=== PATIENT | female | born 1950 | race Caucasian/White ===

== ENCOUNTER 2020-06-25 12:51 | Inpatient (IN) ==
[2020-06-25] MEDS ORDERED: NS 0.9% 1000 ml BAG 1,000 ML IV ONE ×2 (12:57→15:21)
[2020-06-25 14:38] LABS: Hematocrit 34 % (35-47); Hemoglobin 11.2 g/dL (12.0-16.0); Mean Corpuscular HGB Conc 33 g/dL (31-36); Mean Corpuscular Hemoglobin 28 pg (27-31); Mean Corpuscular Volume 86 fL (80-97); Mean Platelet Volume 8.3 fL (7.4-10.4); Platelet Count 172 10^3/uL (150-450); Red Blood Count 3.99 10^6 /uL (3.70-4.87); Red Cell Distribution Width 18 % (10-15); White Blood Count 6.5 10^3/uL (3.5-10.8)
[2020-06-25 14:59] LABS: Troponin I 0.01 ng/mL (<0.03)
[2020-06-25 15:12] LABS: TSH Ultra Thyroid Stim Horm 8.48 mcIU/mL (0.34-5.60)
[2020-06-25 15:13] LABS: Albumin 3.6 g/dL (3.2-5.2); Albumin/Globulin Ratio 1.1 (1-3); BUN/Creatinine Ratio 16.3 (8-20); Calcium 9.4 mg/dL (8.6-10.3); EGFR African American 86.1 (>60); EGFR Non-African American 71.1 (>60); Globulin 3.3 g/dL (2-4); Magnesium 1.4 mg/dL (1.9-2.7); Potassium 3.4 mmol/L (3.5-5.0); Total Bilirubin 2.1 mg/dL (0.2-1.0); Total Protein 6.9 g/dL (6.4-8.9)
[2020-06-25] MEDS ORDERED: Magnesium Sulfate 2 gm BAG 2 GM/50 ML BAG IVPB ONE (15:21)
[2020-06-25 15:56] LABS: ABS Basophils 0.1 10^3/ul (0-0.2); ABS Eosinophils 0.1 10^3/ul (0-0.6); ABS Lymphocytes 1.4 10^3/ul (1.0-4.8); ABS Monocytes 0.4 10^3/ul (0-0.8); ABS Neutrophils 4.6 10^3/ul (1.5-7.7); ABS Nucleated RBC 0.4 10^3/ul; Eosinophil % 0.9 %; Lymphocyte % 21.8 %; Nucleated Red Blood Cells % 5.4
[2020-06-25 15:57] LABS: Activated Partial Thrombo Time 21.5 seconds (26.0-38.0); INR 1.57 (0.82-1.09)
[2020-06-25] MEDS ORDERED: Al Hydrox/Mg Hydrox/Simet LIQ 30 ML UDC PO PRN (17:14)
[2020-06-25] MEDS ORDERED: HYDROcodone/ACETAMIN 5/325 mg TAB PO PRN (17:18)
[2020-06-25] MEDS ORDERED: Polyethylene Glycol 3350 17 GM PACKET PO PRN (17:18)
[2020-06-25] MEDS ORDERED: Iohexol 350 (CONTRAST) 500 ML MDV IV ONE (17:37)
[2020-06-25 17:39] LABS: C Reactive Protein 43.03 mg/L (<8.01)
[2020-06-25] MEDS ORDERED: Potassium Chloride LIQUID 20 MEQ/15 ML LIQUID PO ONE (17:45)
[2020-06-25 17:57] LABS: Free T4 1.27 ng/dL (0.61-1.12)
[2020-06-25 18:12] LABS: Urine Appearance Clear; Urine Bilirubin Negative (Negative); Urine Blood 1+ (Negative); Urine Color Yellow; Urine Glucose Negative (Negative); Urine Ketones Trace (Negative); Urine Nitrite Negative (Negative); Urine Protein Negative (Negative); Urine Specific Gravity 1.012 (1.010-1.030); Urine Urobilinogen Negative (Negative)
[2020-06-25 18:21] LABS: Urine Bacteria 1+ (Absent); Urine Red Blood Cell 1+(3-5/hpf) (Absent); Urine Squamous Epithelial Cell Present (Absent); Urine White Blood Cell 2+(11-20/hpf) (Absent)
[2020-06-25 18:30] LABS: Ferritin 687.7 ng/mL (11-307)
[2020-06-26] MEDS ORDERED: DILTIAZEM HCL 360 MG PO SCH (09:00)
[2020-06-26] MEDS ORDERED: Anastrozole 1 mg TAB (NF) PO SCH (09:00)
[2020-06-26] MEDS: CMCS: Anastrozole 1 mg TAB (NF) PO SCH (11:26)
[2020-06-27] MEDS: CMCS: Anastrozole 1 mg TAB (NF) PO SCH ×2 (09:00→12:24)
[2020-06-27 14:12] LABS: Hematocrit 28 % (35-47); Hemoglobin 9.1 g/dL (12.0-16.0); Mean Corpuscular HGB Conc 32 g/dL (31-36); Mean Corpuscular Hemoglobin 28 pg (27-31); Mean Corpuscular Volume 86 fL (80-97); Mean Platelet Volume 7.7 fL (7.4-10.4); Platelet Count 148 10^3/uL (150-450); Red Blood Count 3.25 10^6 /uL (3.70-4.87); Red Cell Distribution Width 17 % (10-15); White Blood Count 4.4 10^3/uL (3.5-10.8)
[2020-06-27 14:17] LABS: INR 1.17 (0.82-1.09)
[2020-06-27 14:26] LABS: BUN/Creatinine Ratio 16.9 (8-20); EGFR African American 122.3 (>60); EGFR Non-African American 101.1 (>60); Potassium 3.4 mmol/L (3.5-5.0)
[2020-06-27 15:16] LABS: ABS Basophils 0.1 10^3/ul (0-0.2); ABS Eosinophils 0.1 10^3/ul (0-0.6); ABS Monocytes 0.3 10^3/ul (0-0.8); ABS Nucleated RBC 0.1 10^3/ul; Eosinophil % 1.9 %; Lymphocyte % 22.9 %; Nucleated Red Blood Cells % 1.9
[2020-06-28] MEDS: CMCS: Anastrozole 1 mg TAB (NF) PO SCH (08:23)
[2020-06-29 05:36] LABS: Hematocrit 28 % (35-47); Hemoglobin 9.2 g/dL (12.0-16.0); Mean Corpuscular HGB Conc 33 g/dL (31-36); Mean Corpuscular Hemoglobin 29 pg (27-31); Mean Corpuscular Volume 88 fL (80-97); Mean Platelet Volume 7.9 fL (7.4-10.4); Platelet Count 152 10^3/uL (150-450); Red Blood Count 3.21 10^6 /uL (3.70-4.87); Red Cell Distribution Width 18 % (10-15); White Blood Count 4.4 10^3/uL (3.5-10.8)
[2020-06-29 05:45] LABS: Calcium 8.9 mg/dL (8.6-10.3); Potassium 3.7 mmol/L (3.5-5.0)
[2020-06-29 05:51] LABS: BUN/Creatinine Ratio 17.9 (8-20); EGFR African American 105.6 (>60); EGFR Non-African American 87.3 (>60)
[2020-06-29 06:13] LABS: ABS Basophils 0.1 10^3/ul (0-0.2); ABS Eosinophils 0.1 10^3/ul (0-0.6); ABS Lymphocytes 1.3 10^3/ul (1.0-4.8); ABS Monocytes 0.3 10^3/ul (0-0.8); ABS Neutrophils 2.6 10^3/ul (1.5-7.7); ABS Nucleated RBC 0.1 10^3/ul; Eosinophil % 2.2 %; Lymphocyte % 29.2 %; Nucleated Red Blood Cells % 1.7
[2020-06-29] MEDS: CMCS: Anastrozole 1 mg TAB (NF) PO SCH (08:23)
[2020-06-29 12:27] LABS: Urine Appearance Turbid; Urine Bilirubin Negative (Negative); Urine Blood 2+ (Negative); Urine Color Amber; Urine Glucose Negative (Negative); Urine Ketones Negative (Negative); Urine Nitrite Negative (Negative); Urine Protein 2+(100 mg/dL) (Negative); Urine Specific Gravity 1.023 (1.010-1.030); Urine Urobilinogen Positive (Negative)
[2020-06-29 12:50] LABS: Urine Bacteria 2+ (Absent); Urine Red Blood Cell 3+(>10/hpf) (Absent); Urine Squamous Epithelial Cell Present (Absent); Urine Transitional Epithelial Present (Absent); Urine White Blood Cell 3+(>20/hpf) (Absent)
[2020-06-29 13:09] LABS: C Reactive Protein 26.75 mg/L (<8.01)
[2020-06-30] MEDS: CMCS: Anastrozole 1 mg TAB (NF) PO SCH (09:16)
[2020-06-30] MEDS ORDERED: Piperacillin/Tazobac ADVAN 3.375 GM in NS 0.9% 100 ml BAG 100 ML IV ONE (10:36)
[2020-06-30] MEDS ORDERED: Zosyn per Pharmacy NOTE FOLLOW UP SCH (11:00)
[2020-07-01] MEDS: ZOSYN 3.375 GM Q8H per EXTENDED INFUSION IV SCH ×2 (00:04→09:39)
[2020-07-01] MEDS: CMCS: Anastrozole 1 mg TAB (NF) PO SCH (09:39)
[2020-07-01] MEDS: methylPREDNISolone SOD SUCC 1000 MG in NS 0.9% 100 ML IVPB SCH (16:55)
[2020-07-01] MEDS ORDERED: methylPREDNISolone SOD SUCC 1000 MG ML VIAL IVPB SCH (17:00)
[2020-07-01 17:37] LABS: Thyroid Peroxidase Antibodies 98.56 IU/mL (<9)
[2020-07-01 17:50] LABS: Thyroglobulin Antibody II 3.2 IU/mL (<4.0)
[2020-07-02] MEDS: Ondansetron 4 mg VIAL 2 MG/ML 2 ml VIAL IV PRN (01:35)
[2020-07-02] MEDS ORDERED: Buffered Lidocaine 1% SYRIN 1 ml INTRADERM ONE ×2 (01:46→12:58)
[2020-07-02] MEDS: ZOSYN 3.375 GM Q8H per EXTENDED INFUSION IV SCH ×3 (02:53→16:42)
[2020-07-02 05:49] LABS: C Reactive Protein 17.98 mg/L (<8.01); Magnesium 1.6 mg/dL (1.9-2.7)
[2020-07-02 06:36] LABS: TSH Ultra Thyroid Stim Horm 4.46 mcIU/mL (0.34-5.60)
[2020-07-02] MEDS: CMCS: Anastrozole 1 mg TAB (NF) PO SCH (08:48)
[2020-07-02] MEDS: methylPREDNISolone SOD SUCC 1000 MG in NS 0.9% 100 ML IVPB SCH (15:02)
[2020-07-03] MEDS: ZOSYN 3.375 GM Q8H per EXTENDED INFUSION IV SCH ×3 (00:21→15:42)
[2020-07-03 05:18] LABS: ABS Lymphocytes 0.9 10^3/ul (1.0-4.8); ABS Monocytes 0.3 10^3/ul (0-0.8); ABS Nucleated RBC 0.1 10^3/ul; Hematocrit 26 % (35-47); Hemoglobin 8.4 g/dL (12.0-16.0); Lymphocyte % 14.7 %; Mean Corpuscular HGB Conc 33 g/dL (31-36); Mean Corpuscular Hemoglobin 28 pg (27-31); Mean Corpuscular Volume 87 fL (80-97); Mean Platelet Volume 7.8 fL (7.4-10.4); Nucleated Red Blood Cells % 2.2; Platelet Count 219 10^3/uL (150-450); Red Blood Count 2.96 10^6 /uL (3.70-4.87); Red Cell Distribution Width 19 % (10-15); White Blood Count 6.2 10^3/uL (3.5-10.8)
[2020-07-03 05:39] LABS: Albumin 3.1 g/dL (3.2-5.2); Albumin/Globulin Ratio 1.2 (1-3); BUN/Creatinine Ratio 20.3 (8-20); Calcium 7.8 mg/dL (8.6-10.3); EGFR African American 87.3 (>60); EGFR Non-African American 72.2 (>60); Globulin 2.6 g/dL (2-4); Potassium 3.6 mmol/L (3.5-5.0); Total Bilirubin 1.2 mg/dL (0.2-1.0); Total Protein 5.7 g/dL (6.4-8.9)
[2020-07-03] MEDS ORDERED: Magnesium Sulfate IV 3 GM in NS 0.9% 100 ml BAG 100 ML IVPB ONE (08:04)
[2020-07-03] MEDS: CMCS: Anastrozole 1 mg TAB (NF) PO SCH (08:29)
[2020-07-03] MEDS: methylPREDNISolone SOD SUCC 1000 MG in NS 0.9% 100 ML IVPB SCH (09:26)
[2020-07-04] MEDS: ZOSYN 3.375 GM Q8H per EXTENDED INFUSION IV SCH ×4 (00:03→23:50)
[2020-07-04] MEDS: CMCS: Anastrozole 1 mg TAB (NF) PO SCH (08:13)
[2020-07-04] MEDS ORDERED: methylPREDNISolone SOD SUCC 500 MG in NS 0.9% 100 ml BAG 100 ML IVPB SCH (09:00)
[2020-07-04 13:00] LABS: HIV 4th Generation Nonreactive (Nonreactive)
[2020-07-05 04:36] LABS: Hematocrit 27 % (35-47); Hemoglobin 8.9 g/dL (12.0-16.0); Mean Corpuscular HGB Conc 33 g/dL (31-36); Mean Corpuscular Hemoglobin 29 pg (27-31); Mean Corpuscular Volume 86 fL (80-97); Mean Platelet Volume 7.6 fL (7.4-10.4); Platelet Count 222 10^3/uL (150-450); Red Blood Count 3.11 10^6 /uL (3.70-4.87); Red Cell Distribution Width 20 % (10-15); White Blood Count 5.1 10^3/uL (3.5-10.8)
[2020-07-05 04:53] LABS: BUN/Creatinine Ratio 17.6 (8-20); Calcium 7.7 mg/dL (8.6-10.3); EGFR African American 94.2 (>60); EGFR Non-African American 77.8 (>60)
[2020-07-05 04:56] LABS: Potassium 2.7 mmol/L (3.5-5.0)
[2020-07-05] MEDS ORDERED: Potassium Chlor 20 meq TAB.ER PO ONE (04:58)
[2020-07-05] MEDS: KCL 20 MEQ/100 ML IVPREMIX 20 MEQ/100 ML BAG IV SCH ×2 (05:10→09:43)
[2020-07-05 08:16] LABS: ABS Lymphocytes 0.6 10^3/ul (1.0-4.8); ABS Monocytes 0.3 10^3/ul (0-0.8); ABS Neutrophils 4.1 10^3/ul (1.5-7.7); ABS Nucleated RBC 0.2 10^3/ul; Eosinophil % 0.1 %; Lymphocyte % 12.8 %; Nucleated Red Blood Cells % 4.2
[2020-07-05 08:18] LABS: Polychromasia 1+
[2020-07-05] MEDS: CMCS: Anastrozole 1 mg TAB (NF) PO SCH (09:49)
[2020-07-05] MEDS: ZOSYN 3.375 GM Q8H per EXTENDED INFUSION IV SCH ×3 (12:11→20:35)
[2020-07-05] MEDS ORDERED: Gadoteridol (CONTRAST) 279.3 MG/ML 10 ML IV ONE (20:08)
[2020-07-06] MEDS: ZOSYN 3.375 GM Q8H per EXTENDED INFUSION IV SCH ×3 (03:21→21:16)
[2020-07-06 07:45] LABS: BUN/Creatinine Ratio 24.1 (8-20); Calcium 7.9 mg/dL (8.6-10.3); EGFR African American 124.7 (>60); EGFR Non-African American 103.1 (>60); Magnesium 1.7 mg/dL (1.9-2.7)
[2020-07-06] MEDS ORDERED: Potassium Chlor 20 meq TAB.ER PO ONE (08:24)
[2020-07-06] MEDS: CMCS: Anastrozole 1 mg TAB (NF) PO SCH (08:58)
[2020-07-07] MEDS: ZOSYN 3.375 GM Q8H per EXTENDED INFUSION IV SCH ×2 (04:39→11:50)
[2020-07-07 05:07] LABS: BUN/Creatinine Ratio 25.5 (8-20); Calcium 8.3 mg/dL (8.6-10.3); EGFR African American 132.6 (>60); EGFR Non-African American 109.6 (>60); Magnesium 1.7 mg/dL (1.9-2.7); Potassium 3.5 mmol/L (3.5-5.0)
[2020-07-07] MEDS: CMCS: Anastrozole 1 mg TAB (NF) PO SCH (09:26)
[2020-07-08] MEDS: CMCS: Anastrozole 1 mg TAB (NF) PO SCH (09:34)
[2020-07-08 17:06] LABS: Hematocrit 31 % (35-47); Mean Corpuscular HGB Conc 32 g/dL (31-36); Mean Corpuscular Hemoglobin 28 pg (27-31); Mean Corpuscular Volume 86 fL (80-97); Mean Platelet Volume 7.4 fL (7.4-10.4); Platelet Count 264 10^3/uL (150-450); Red Blood Count 3.63 10^6 /uL (3.70-4.87); Red Cell Distribution Width 19 % (10-15); White Blood Count 10.2 10^3/uL (3.5-10.8)
[2020-07-08 17:25] LABS: BUN/Creatinine Ratio 30.8 (8-20); Calcium 8.6 mg/dL (8.6-10.3); EGFR African American 141.5 (>60); EGFR Non-African American 116.9 (>60); Potassium 3.3 mmol/L (3.5-5.0)
[2020-07-08 17:28] LABS: ABS Lymphocytes 0.9 10^3/ul (1.0-4.8); ABS Monocytes 0.2 10^3/ul (0-0.8); ABS Neutrophils 9.1 10^3/ul (1.5-7.7); ABS Nucleated RBC 0.2 10^3/ul; Eosinophil % 0.1 %; Lymphocyte % 8.6 %; Microcytosis 1+; Nucleated Red Blood Cells % 1.5; Polychromasia 1+
[2020-07-08 18:22] LABS: Urine Appearance Cloudy; Urine Bilirubin Negative (Negative); Urine Blood Negative (Negative); Urine Color Yellow; Urine Glucose Negative (Negative); Urine Ketones Negative (Negative); Urine Nitrite Negative (Negative); Urine Protein 1+(30 mg/dL) (Negative); Urine Specific Gravity 1.013 (1.010-1.030); Urine Urobilinogen Negative (Negative)
[2020-07-08 18:44] LABS: Urine Bacteria Absent (Absent); Urine Red Blood Cell Absent (Absent); Urine White Blood Cell Trace(0-5/hpf) (Absent)
[2020-07-09] MEDS: CMCS: Anastrozole 1 mg TAB (NF) PO SCH (08:21)
[2020-07-09 11:29] LABS: Body Fluid Source Cerebral Spinal
[2020-07-09 11:47] LABS: CSF Glucose 79 mg/dL (40-70)
[2020-07-09 12:24] LABS: Activated Partial Thrombo Time 20.6 seconds (26.0-38.0); INR 1.16 (0.82-1.09)
[2020-07-09 13:20] LABS: Body Fluid Mono 20 %
[2020-07-10 05:23] LABS: Hematocrit 31 % (35-47); Hemoglobin 9.9 g/dL (12.0-16.0); Mean Corpuscular HGB Conc 33 g/dL (31-36); Mean Corpuscular Hemoglobin 28 pg (27-31); Mean Corpuscular Volume 87 fL (80-97); Mean Platelet Volume 7.3 fL (7.4-10.4); Platelet Count 246 10^3/uL (150-450); Red Blood Count 3.53 10^6 /uL (3.70-4.87); Red Cell Distribution Width 20 % (10-15); White Blood Count 7.7 10^3/uL (3.5-10.8)
[2020-07-10 05:37] LABS: Albumin 3.2 g/dL (3.2-5.2); Albumin/Globulin Ratio 1.4 (1-3); BUN/Creatinine Ratio 36.4 (8-20); Calcium 8.5 mg/dL (8.6-10.3); EGFR African American 132.6 (>60); EGFR Non-African American 109.6 (>60); Globulin 2.3 g/dL (2-4); Magnesium 1.6 mg/dL (1.9-2.7); Potassium 3.3 mmol/L (3.5-5.0); Total Bilirubin 0.9 mg/dL (0.2-1.0); Total Protein 5.5 g/dL (6.4-8.9)
[2020-07-10 06:30] LABS: Polychromasia 1+
[2020-07-10 06:34] LABS: ABS Basophils 0.1 10^3/ul (0-0.2); ABS Lymphocytes 1.2 10^3/ul (1.0-4.8); ABS Monocytes 0.6 10^3/ul (0-0.8); ABS Neutrophils 5.8 10^3/ul (1.5-7.7); ABS Nucleated RBC 0.2 10^3/ul; Eosinophil % 0.3 %; Lymphocyte % 15.3 %; Nucleated Red Blood Cells % 1.9
[2020-07-10] MEDS: CMCS: Anastrozole 1 mg TAB (NF) PO SCH (09:02)
[2020-07-10] MEDS ORDERED: Potassium Chlor 20 meq TAB.ER PO ONE ×2 (10:06→12:00)
[2020-07-10] MEDS ORDERED: Magnesium Sulf 4 GM/100 ML IV 4,000 MG/100 ML BAG IVPB ONE (10:09)
[2020-07-11 05:09] LABS: BUN/Creatinine Ratio 37.3 (8-20); Calcium 8.9 mg/dL (8.6-10.3); EGFR African American 122.3 (>60); EGFR Non-African American 101.1 (>60); Magnesium 2.2 mg/dL (1.9-2.7); Potassium 4.1 mmol/L (3.5-5.0)
[2020-07-11] MEDS: CMCS: Anastrozole 1 mg TAB (NF) PO SCH (09:22)
[2020-07-12] MEDS: CMCS: Anastrozole 1 mg TAB (NF) PO SCH (08:56)
[2020-07-12] MEDS ORDERED: Furosemide 20 mg/2 ml IV VIAL IV SLOW PU ONE (13:11)
[2020-07-12] MEDS ORDERED: Gadoteridol (CONTRAST) 279.3 MG/ML 10 ML IV ONE (16:42)
[2020-07-12] MEDS: Nitrofurantoin (monohydrate/macrocrystals) 100 mg CAP PO SCH (21:30)
[2020-07-13 06:19] LABS: ABS Nucleated RBC 0.3 10^3/ul; Hematocrit 30 % (35-47); Hemoglobin 9.7 g/dL (12.0-16.0); Mean Corpuscular HGB Conc 32 g/dL (31-36); Mean Corpuscular Hemoglobin 28 pg (27-31); Mean Corpuscular Volume 88 fL (80-97); Mean Platelet Volume 7.8 fL (7.4-10.4); Nucleated Red Blood Cells % 3.2; Platelet Count 178 10^3/uL (150-450); Red Blood Count 3.43 10^6 /uL (3.70-4.87); Red Cell Distribution Width 20 % (10-15); White Blood Count 7.9 10^3/uL (3.5-10.8)
[2020-07-13 06:31] LABS: ABS Eosinophils 0.1 10^3/ul (0-0.6); ABS Lymphocytes 1.2 10^3/ul (1.0-4.8); ABS Monocytes 0.3 10^3/ul (0-0.8); Eosinophil % 0.8 %; Lymphocyte % 15.7 %
[2020-07-13 06:38] LABS: BUN/Creatinine Ratio 30.5 (8-20); Calcium 8.6 mg/dL (8.6-10.3); EGFR African American 122.3 (>60); EGFR Non-African American 101.1 (>60); Magnesium 1.8 mg/dL (1.9-2.7); Potassium 3.8 mmol/L (3.5-5.0)
[2020-07-13] MEDS ORDERED: NS 0.9% 500 ml BAG 500 ML IV ONE (08:41)
[2020-07-13] MEDS ORDERED: NS 0.9% 1000 ml BAG 1,000 ML IV ONE (08:46)
[2020-07-13] MEDS ORDERED: Buffered Lidocaine 1% SYRIN 1 ml INTRADERM ONE (09:40)
[2020-07-13] MEDS: Nitrofurantoin (monohydrate/macrocrystals) 100 mg CAP PO SCH ×2 (13:46→20:48)
[2020-07-13] MEDS: CMCS: Anastrozole 1 mg TAB (NF) PO SCH (13:47)
[2020-07-13] MEDS ORDERED: Magnesium Sulfate 2 gm BAG 2 GM/50 ML BAG IVPB ONE (15:17)
[2020-07-14 07:16] LABS: Calcium 8.7 mg/dL (8.6-10.3); EGFR African American 129.9 (>60); EGFR Non-African American 107.3 (>60); Magnesium 2.1 mg/dL (1.9-2.7); Potassium 4.1 mmol/L (3.5-5.0)
[2020-07-14] MEDS: Nitrofurantoin (monohydrate/macrocrystals) 100 mg CAP PO SCH ×2 (08:26→20:31)
[2020-07-14] MEDS: CMCS: Anastrozole 1 mg TAB (NF) PO SCH (08:27)
[2020-07-14 10:13] LABS: Anti-Glial/Neuronal Nuc Ab-1 A Negative titer (<1:240); Anti-Neuronal Nuclear Ab Type1 Negative titer (<1:240); Anti-Neuronal Nuclear Ab Type2 Negative titer (<1:240); Anti-Neuronal Nuclear Ab Type3 Negative titer (<1:240); CRMP-5 IgG Antibody Negative titer (<1:240); Purkinje Cell Cytoplasm Typ Tr Negative titer (<1:240); Purkinje Cell Cytoplasm Type 1 Negative titer (<1:240); Purkinje Cell Cytoplasm Type 2 Negative titer (<1:240)
[2020-07-14] MEDS: Enoxaparin 40 MG/0.4 ML SYR SUBCUT SCH (18:37)
[2020-07-15 06:00] LABS: BUN/Creatinine Ratio 20.8 (8-20); Blood Urea Nitrogen 20 mg/dL (6-24); CO2 Carbon Dioxide 25 mmol/L (22-32); Calcium 9.1 mg/dL (8.6-10.3); Chloride 106 mmol/L (101-111); EGFR African American 69.7 (>60); EGFR Non-African American 57.6 (>60); Glucose 98 mg/dL (70-100); Magnesium 2.1 mg/dL (1.9-2.7); Sodium 137 mmol/L (135-145)
[2020-07-15 06:19] LABS: Anion Gap 6 mmol/L (2-11)
[2020-07-15] MEDS: Nitrofurantoin (monohydrate/macrocrystals) 100 mg CAP PO SCH ×2 (09:56→20:54)
[2020-07-15] MEDS: CMCS: Anastrozole 1 mg TAB (NF) PO SCH (09:57)
[2020-07-15] MEDS: Ondansetron 4 mg VIAL 2 MG/ML 2 ml VIAL IV PRN (10:01)
[2020-07-15] MEDS: Enoxaparin 40 MG/0.4 ML SYR SUBCUT SCH (18:08)
[2020-07-16 06:16] LABS: ABS Lymphocytes 0.6 10^3/ul (1.0-4.8); ABS Monocytes 0.4 10^3/ul (0-0.8); ABS Neutrophils 7.3 10^3/ul (1.5-7.7); Hematocrit 27 % (35-47); Hemoglobin 8.7 g/dL (12.0-16.0); Lymphocyte % 7.7 %; Mean Corpuscular HGB Conc 32 g/dL (31-36); Mean Corpuscular Hemoglobin 29 pg (27-31); Mean Corpuscular Volume 88 fL (80-97); Mean Platelet Volume 7.4 fL (7.4-10.4); Nucleated Red Blood Cells % 0.3; Platelet Count 136 10^3/uL (150-450); Red Blood Count 3.04 10^6 /uL (3.70-4.87); Red Cell Distribution Width 21 % (10-15); White Blood Count 8.3 10^3/uL (3.5-10.8)
[2020-07-16 06:34] LABS: Calcium 8.3 mg/dL (8.6-10.3); Potassium 4.3 mmol/L (3.5-5.0)
[2020-07-16 06:40] LABS: EGFR African American 141.5 (>60); EGFR Non-African American 116.9 (>60)
[2020-07-16] MEDS: Nitrofurantoin (monohydrate/macrocrystals) 100 mg CAP PO SCH ×2 (08:20→20:01)
[2020-07-16] MEDS: CMCS: Anastrozole 1 mg TAB (NF) PO SCH (08:21)
[2020-07-16] MEDS: diPHENhydraMINE IV 50 MG/ML 1 ml VIAL (BENADRYL) IV SCH (10:49)
[2020-07-16] MEDS: IMMUNE GLOBULN IV SCH (11:34)
[2020-07-16] MEDS: Enoxaparin 40 MG/0.4 ML SYR SUBCUT SCH (17:25)
[2020-07-17] MEDS: Nitrofurantoin (monohydrate/macrocrystals) 100 mg CAP PO SCH (09:51)
[2020-07-17] MEDS: CMCS: Anastrozole 1 mg TAB (NF) PO SCH (09:56)
[2020-07-17] MEDS: diPHENhydraMINE IV 50 MG/ML 1 ml VIAL (BENADRYL) IV SCH (10:51)
[2020-07-17] MEDS: IMMUNE GLOBULN IV SCH (11:51)
[2020-07-18] MEDS: CMCS: Anastrozole 1 mg TAB (NF) PO SCH (08:03)
[2020-07-18] MEDS: diPHENhydraMINE IV 50 MG/ML 1 ml VIAL (BENADRYL) IV SCH (10:31)
[2020-07-18] MEDS: IMMUNE GLOBULN IV SCH (10:55)
[2020-07-19] MEDS: CMCS: Anastrozole 1 mg TAB (NF) PO SCH (07:55)
[2020-07-19] MEDS: diPHENhydraMINE IV 50 MG/ML 1 ml VIAL (BENADRYL) IV SCH (10:19)
[2020-07-19] MEDS: Immune Globuln (PRIVIGEN) 30 GM in PREMIX IV SCH (11:07)
[2020-07-19 14:57] LABS: CRMP-5-IgG, CSF Negative
[2020-07-19 14:58] LABS: PCA-Tr, CSF Negative
[2020-07-19 14:59] LABS: PCA-1, CSF Negative; PCA-2, CSF Negative
[2020-07-20] MEDS: diPHENhydraMINE IV 50 MG/ML 1 ml VIAL (BENADRYL) IV SCH (10:41)
[2020-07-20] MEDS: CMCS: Anastrozole 1 mg TAB (NF) PO SCH (11:03)
[2020-07-20] MEDS: Immune Globuln (PRIVIGEN) 30 GM in PREMIX IV SCH (11:25)
[2020-07-20 17:22] LABS: Hematocrit 30 % (35-47); Hemoglobin 9.5 g/dL (12.0-16.0); Mean Corpuscular HGB Conc 32 g/dL (31-36); Mean Corpuscular Hemoglobin 29 pg (27-31); Mean Corpuscular Volume 89 fL (80-97); Mean Platelet Volume 7.6 fL (7.4-10.4); Platelet Count 188 10^3/uL (150-450); Red Blood Count 3.31 10^6 /uL (3.70-4.87); Red Cell Distribution Width 22 % (10-15)
[2020-07-20 17:24] LABS: ABS Lymphocytes 0.6 10^3/ul (1.0-4.8); ABS Monocytes 0.1 10^3/ul (0-0.8); ABS Neutrophils 5.2 10^3/ul (1.5-7.7); ABS Nucleated RBC 0.1 10^3/ul; Eosinophil % 0.1 %; Lymphocyte % 10.2 %
[2020-07-21] MEDS: diPHENhydraMINE IV 50 MG/ML 1 ml VIAL (BENADRYL) IV SCH (09:38)
[2020-07-21] MEDS: CMCS: Anastrozole 1 mg TAB (NF) PO SCH (09:43)
[2020-07-21 11:33] VITALS: BP 155/89
== END 2020-07-21 12:34 | DRG 597 ==
LOC: ED 12:51 → MEDTELE 17:14 → ED 18:25 → MEDTELE 06-27 13:53
PROVIDERS: ADMIT Pediatrics; ATTEND Pediatrics